=== PATIENT | female | born 1980 | race American Indian/Alaskan Native ===

== ENCOUNTER 2016-07-29 06:49 | Emergency (ER) | payer MEDICAID ==
[~2016-07-29] VITALS: Ht 170.2 cm; Wt 77.2 kg
[~2016-07-29 06:49] MED LIST: ACET325T21 PO; CEFU500T50 PO; FERR325T20 PO; FURO20TA3 PO; LEVO750T26 PO; MEDR5TAB2 PO; NAPR500T PO; OMEP-110 PO; OXYC5TAB3 PO; PENT400T2 PO; POLY17PO5 PO; POTA20TA14 PO; SPIR50TA PO
[2016-07-29] MEDS ORDERED: ONDANSETRON 2MG/ML, 2ML ONE (07:59)
[2016-07-29] MEDS ORDERED: MORPHINE SULFATE 4 MG/ML, 1ML ONE (07:59)
[2016-07-29] MEDS ORDERED: MORPHINE SULFATE 4 MG/ML, 1ML IVPush PRN (08:00)
[2016-07-29] MEDS ORDERED: ONDANSETRON 2MG/ML, 2ML IVPush ONE (08:00)
[2016-07-29] MEDS ORDERED: SODIUM CHLORIDE FLUSH 10ML SYR IVF ONE (08:00)
[2016-07-29] MEDS ORDERED: SODIUM CHLORIDE 0.9% 1,000ML IVBOLUS ONE (08:00)
[2016-07-29 08:12] LABS: HEMOGLOBIN 10.7 g/dL (11.7-16.4)
[2016-07-29 08:24] LABS: BLOOD UREA NITROGEN 1 mg/dL (7-18)
[2016-07-29 08:28] LABS: ASPARTATE AMINO TRANSFERASE 69 U/L (15-37)
[2016-07-29 09:27] LABS: HCG UR OBC PASS
[2016-07-29 10:42] VITALS: BP 117/61
== END 2016-07-29 10:51 | disposition home or self-care (01) ==
LOC: ED 07:22
DX: K64.8 Other hemorrhoids (principal); K70.10 Alcoholic hepatitis without ascites; J45.909 Unspecified asthma, uncomplicated; Z90.49 Acquired absence of other specified parts of digestive tract; Z98.51 Tubal ligation status
CPT/HCPCS: 36415; 46600; 80053; 80307; 81001; 81025; 83690; 85025; 85610; 85730; 96361; 96374; 96375; 99284; J2405; J7030

== ENCOUNTER 2016-08-25 07:16 | Emergency (ER) | payer MEDICAID ==
[~2016-08-25] VITALS: Ht 170.2 cm; Wt 78.3 kg
[2016-08-25] MEDS ORDERED: MORPHINE SULFATE 4 MG/ML, 1ML IVPush PRN (08:00)
[2016-08-25] MEDS ORDERED: ONDANSETRON 2MG/ML, 2ML IVPush ONE (08:00)
[2016-08-25] MEDS ORDERED: SODIUM CHLORIDE FLUSH 10ML SYR IVF ONE (08:00)
[2016-08-25] MEDS ORDERED: SODIUM CHLORIDE 0.9% 1,000ML IVBOLUS ONE (08:00)
[2016-08-25] MEDS ORDERED: MORPHINE SULFATE 4 MG/ML, 1ML ONE (08:04)
[2016-08-25] MEDS ORDERED: ONDANSETRON 2MG/ML, 2ML ONE (08:04)
[2016-08-25 08:14] LABS: ASPARTATE AMINO TRANSFERASE 124 U/L (15-37); BLOOD UREA NITROGEN 1 mg/dL (7-18)
[2016-08-25 09:30] VITALS: BP 91/56
[2016-08-25] MEDS ORDERED: OMNIPAQUE 350 MG/ML, 100ML BOTTLE ONE (09:53)
[2016-08-25] MEDS ORDERED: CEFTRIAXONE PMX 1GM/50ML 50 ML ONE (11:29)
[2016-08-25] MEDS ORDERED: CEFTRIAXONE PMX 1GM/50ML 50 ML IVPB ONE (11:30)
== END 2016-08-25 12:00 | disposition home or self-care (01) ==
LOC: ED 08:45
DX: N30.00 Acute cystitis without hematuria (principal); K70.30 Alcoholic cirrhosis of liver without ascites; D53.9 Nutritional anemia, unspecified; R10.84 Generalized abdominal pain
CPT/HCPCS: 36415; 74177; 80053; 81001; 83690; 84703; 85025; 85610; 87077; 87086; 96361; 96374; 96375; 99285; J0696; J2405; J7030; Q9967; 87186

== ENCOUNTER 2016-09-03 01:44 | Emergency (ER) | payer MEDICAID ==
[~2016-09-03] VITALS: Ht 170.2 cm; Wt 80.0 kg
[2016-09-03] MEDS ORDERED: ESCI10TA10 PO (01:53)
[2016-09-03] MEDS ORDERED: QUET200T4 PO (01:53)
[2016-09-03 02:21] LABS: ASPARTATE AMINO TRANSFERASE 154 U/L (15-37); BLOOD UREA NITROGEN 2 mg/dL (7-18)
[2016-09-03 02:26] LABS: DAU SCREEN DISCLAIMER
[2016-09-03] MEDS ORDERED: SODIUM CHLORIDE 0.9%, 500ML IVBOLUS ONE (02:30)
[2016-09-03 03:30] VITALS: BP 134/75
== END 2016-09-03 03:32 | disposition home or self-care (01) ==
LOC: ED 03:26
DX: K70.30 Alcoholic cirrhosis of liver without ascites (principal); F10.20 Alcohol dependence, uncomplicated; R79.89 Other specified abnormal findings of blood chemistry; D64.9 Anemia, unspecified; R10.30 Lower abdominal pain, unspecified; G89.29 Other chronic pain; K75.9 Inflammatory liver disease, unspecified; J45.909 Unspecified asthma, uncomplicated; F19.10 Other psychoactive substance abuse, uncomplicated; Z90.49 Acquired absence of other specified parts of digestive tract
CPT/HCPCS: 36415; 51701; 76770; 80053; 80307; 81001; 84703; 85025; 99285; J7040; P9612

== ENCOUNTER 2016-09-03 12:11 | Inpatient (IN) | payer MEDICAID ==
[~2016-09-03] VITALS: Ht 170.2 cm; Wt 89.0 kg
[~2016-09-03 12:11] MED LIST changes: +ESCI10TA10 PO; +QUET200T4 PO
[2016-09-03] MEDS ORDERED: SODIUM CHLORIDE 0.9% 1,000 ML IV ONE ×2 (14:22→16:27)
[2016-09-03] MEDS ORDERED: ONDANSETRON 2MG/ML, 2ML IVPush ONE (14:30)
[2016-09-03] MEDS ORDERED: SODIUM CHLORIDE FLUSH 10ML SYR IVF ONE (14:30)
[2016-09-03] MEDS ORDERED: SODIUM CHLORIDE 0.9% 1,000ML IVBOLUS ONE ×2 (14:30→16:00)
[2016-09-03 15:35] LABS: BLOOD UREA NITROGEN 3 mg/dL (7-18)
[2016-09-03 15:38] LABS: ASPARTATE AMINO TRANSFERASE 191 U/L (15-37)
[2016-09-03] MEDS ORDERED: LORazepam 2 MG/ML, 1ML IVPush PRN (16:00)
[2016-09-03] MEDS ORDERED: LORazepam 2 MG/ML, 1ML ONE (16:01)
[2016-09-03] MEDS ORDERED: ONDANSETRON 2MG/ML, 2ML ONE (16:01)
[2016-09-03] MEDS ORDERED: ONDANSETRON 2MG/ML, 2ML IVPush PRN (16:30)
[2016-09-03] MEDS ORDERED: SODIUM CHLORIDE FLUSH 10ML SYR IVF PRN (16:30)
[2016-09-03] MEDS ORDERED: LORazepam 2 MG/ML, 1ML IV PRN ×3 (17:30)
[2016-09-03] MEDS ORDERED: LORazepam 0.5MG TABLET PO PRN (17:30)
[2016-09-03] MEDS ORDERED: DIAZEPAM 5 MG/ML, 2ML IV ONE (17:30)
[2016-09-03] MEDS: LACTULOSE 20 GM/30 ML UDC PO SCH ×2 (17:30→21:00)
[2016-09-03] MEDS ORDERED: LORazepam 1MG TABLET PO PRN ×2 (17:30)
[2016-09-03 18:54] VITALS: BP 109/71
[2016-09-03] MEDS ORDERED: MAGNESIUM SULFATE PMX 4GM/100M 100 ML IV ONE (19:00)
[2016-09-03] MEDS: MORPHINE SULFATE 4 MG/ML, 1ML IVPush PRN (19:51)
[2016-09-03 20:12] LABS: DAU SCREEN DISCLAIMER
[2016-09-03 20:20] LABS: HCG UR OBC PASS
[2016-09-03] MEDS: MVI ADULT 10 ML, FOLIC ACID 1 MG in D5%-0.9% NACL 1,000 ML IV SCH (20:39)
[2016-09-03] MEDS: FAMOTIDINE 20 MG/2 ML IVPush SCH (22:05)
[2016-09-03] MEDS: ONDANSETRON 2MG/ML, 2ML IV PRN (22:06)
[2016-09-04] VITALS (9 sets, daily range): BP systolic 117–130; BP diastolic 62–78
[2016-09-04] MEDS: MORPHINE SULFATE 4 MG/ML, 1ML IVPush PRN ×2 (01:55→13:50)
[2016-09-04] MEDS: MVI ADULT 10 ML, FOLIC ACID 1 MG in D5%-0.9% NACL 1,000 ML IV SCH ×2 (05:13→17:00)
[2016-09-04 07:50] LABS: ASPARTATE AMINO TRANSFERASE 112 U/L (15-37); BLOOD UREA NITROGEN 2 mg/dL (7-18)
[2016-09-04] MEDS: LACTULOSE 20 GM/30 ML UDC PO SCH ×3 (09:35→20:15)
[2016-09-04] MEDS: FAMOTIDINE 20 MG/2 ML IVPush SCH ×2 (09:35→20:16)
[2016-09-04 10:58] LABS: ANISOCYTOSIS 1+; OVALOCYTES 1+; POLYCHROMASIA 1+
[2016-09-04] MEDS: ONDANSETRON 2MG/ML, 2ML IV PRN (13:51)
[2016-09-04] MEDS: POTASSIUM CHLORIDE 20 MEQ TAB.ER.PRT PO SCH (16:34)
[2016-09-05] VITALS (7 sets, daily range): BP systolic 122–142; BP diastolic 73–83
[2016-09-05] MEDS: MVI ADULT 10 ML, FOLIC ACID 1 MG in D5%-0.9% NACL 1,000 ML IV SCH (01:08)
[2016-09-05] MEDS: MORPHINE SULFATE 4 MG/ML, 1ML IVPush PRN ×4 (01:08→22:16)
[2016-09-05] MEDS: ONDANSETRON 2MG/ML, 2ML IV PRN ×3 (01:09→17:21)
[2016-09-05 06:10] LABS: ASPARTATE AMINO TRANSFERASE 84 U/L (15-37); BLOOD UREA NITROGEN < 1 mg/dL (7-18)
[2016-09-05 07:17] LABS: DIFF TOTAL CELLS COUNTED 100 CELL DIFF
[2016-09-05] MEDS ORDERED: POTASSIUM CHLORIDE 40 MEQ in D5%-0.9% NACL 1,000 ML IV SCH (07:30)
[2016-09-05 07:31] LABS: ANISOCYTOSIS 2+; OVALOCYTES 1+; POIKILOCYTOSIS 1+; SCHISTOCYTES 1+
[2016-09-05 07:32] LABS: VERIFY COUNTS? YES
[2016-09-05] MEDS: THIAMINE 100MG TABLET PO SCH (09:52)
[2016-09-05] MEDS: FOLIC ACID 1 MG TABLET PO SCH (09:52)
[2016-09-05] MEDS: LACTULOSE 20 GM/30 ML UDC PO SCH ×3 (09:52→22:02)
[2016-09-05] MEDS: MULTIVITAMIN 1 TABLET PO SCH (09:52)
[2016-09-05] MEDS: FAMOTIDINE 20 MG/2 ML IVPush SCH ×2 (09:52→22:03)
[2016-09-05] MEDS: POTASSIUM CHLORIDE 20 MEQ TAB.ER.PRT PO SCH (11:36)
[2016-09-05] MEDS: CEFTRIAXONE PMX 1GM/50ML 50 ML IV SCH (15:15)
[2016-09-05] MEDS ORDERED: POTASSIUM PHOSPHATE 22 MEQ in SODIUM CHLORIDE 0.9% 500 ML IV ONE (16:00)
[2016-09-05] MEDS: POTASSIUM CHLORIDE 40 MEQ in D5%-0.9% NACL 1,000 ML IV SCH (19:18)
[2016-09-05 22:46] LABS: OCCBLD OBC PASS
[2016-09-06] MEDS: ONDANSETRON 2MG/ML, 2ML IV PRN ×4 (00:20→20:28)
[2016-09-06 02:03] VITALS: BP 127/80
[2016-09-06] MEDS: MORPHINE SULFATE 4 MG/ML, 1ML IVPush PRN ×3 (05:07→20:28)
[2016-09-06 05:25] LABS: BLOOD UREA NITROGEN < 1 mg/dL (7-18)
[2016-09-06 05:49] LABS: DIFF TOTAL CELLS COUNTED 100 CELL DIFF
[2016-09-06 05:51] LABS: ANISOCYTOSIS 2+; POLYCHROMASIA 1+; VERIFY COUNTS? YES
[2016-09-06] MEDS: POTASSIUM CHLORIDE 40 MEQ in D5%-0.9% NACL 1,000 ML IV SCH (06:22)
[2016-09-06 07:53] VITALS: BP 134/80
[2016-09-06] MEDS: THIAMINE 100MG TABLET PO SCH (08:24)
[2016-09-06] MEDS: FAMOTIDINE 20 MG/2 ML IVPush SCH ×2 (08:24→20:28)
[2016-09-06] MEDS: MULTIVITAMIN 1 TABLET PO SCH (08:25)
[2016-09-06] MEDS: FOLIC ACID 1 MG TABLET PO SCH (08:25)
[2016-09-06] MEDS: LACTULOSE 20 GM/30 ML UDC PO SCH ×4 (08:25→20:28)
[2016-09-06 13:57] VITALS: BP 116/71
[2016-09-06] MEDS: CEFTRIAXONE PMX 1GM/50ML 50 ML IV SCH (15:03)
[2016-09-06] MEDS ORDERED: MAGNESIUM SULFATE PMX 4GM/100M 100 ML IV ONE (16:30)
[2016-09-06] MEDS: POTASSIUM CHLORIDE 20 MEQ TAB.ER.PRT PO SCH (17:00)
[2016-09-06 18:53] VITALS: BP 116/72
[2016-09-07 00:56] VITALS: BP 100/59
[2016-09-07 05:52] LABS: BLOOD UREA NITROGEN 1 mg/dL (7-18)
[2016-09-07 05:58] LABS: ASPARTATE AMINO TRANSFERASE 58 U/L (15-37)
[2016-09-07] MEDS: ONDANSETRON 2MG/ML, 2ML IV PRN (06:32)
[2016-09-07 06:53] LABS: DIFF TOTAL CELLS COUNTED 100 CELL DIFF
[2016-09-07 06:56] LABS: ANISOCYTOSIS 2+; POLYCHROMASIA 1+; VERIFY COUNTS? YES
[2016-09-07 07:31] VITALS: BP 114/73
[2016-09-07] MEDS: MULTIVITAMIN 1 TABLET PO SCH (08:52)
[2016-09-07] MEDS: FAMOTIDINE 20 MG/2 ML IVPush SCH (08:52)
[2016-09-07] MEDS: FOLIC ACID 1 MG TABLET PO SCH (08:52)
[2016-09-07] MEDS: THIAMINE 100MG TABLET PO SCH (08:52)
[2016-09-07] MEDS: POTASSIUM CHLORIDE 20 MEQ TAB.ER.PRT PO SCH (08:52)
[2016-09-07] MEDS: LACTULOSE 20 GM/30 ML UDC PO SCH (08:53)
[2016-09-07] MEDS: MORPHINE SULFATE 4 MG/ML, 1ML IVPush PRN (08:59)
[2016-09-07] MEDS ORDERED: THIA100T6 PO (12:40)
[2016-09-07] MEDS ORDERED: LACT20SO13 PO (12:40)
[2016-09-07] MEDS ORDERED: MULT1TAB60 PO (12:40)
[2016-09-07] MEDS ORDERED: NITR100C PO (12:40)
[2016-09-07] MEDS ORDERED: FOLI-17 PO (12:40)
[2016-09-07] MEDS ORDERED: TRAM50TA2 PO (12:40)
[2016-09-07] MEDS ORDERED: POTA20TA6 PO (12:40)
[2016-09-07] MEDS ORDERED: FAMO-79 PO (12:40)
[2016-09-07] MEDS ORDERED: CEFTRIAXONE 1,000 MG in SODIUM CHLORIDE 0.9% 50 ML IV SCH (15:00)
== END 2016-09-07 15:00 | disposition home or self-care (01) | DRG 432 ==
LOC: ED 14:16 → EDIP 16:27 → 3NE 18:04 → 4EST 09-04 12:54 → 4WST 09-06 17:47 → DCLOUNGE 09-07 14:26
PROVIDERS: ADMIT Family Medicine; ATTEND Family Medicine
PROC: 30233N1 Transfusion of Nonautologous Red Blood Cells into Peripheral Vein, Percutaneous Approach (ICD-10-PCS; principal; 2016-09-04)
DX: K70.10 Alcoholic hepatitis without ascites (principal); E43 Unspecified severe protein-calorie malnutrition; D68.9 Coagulation defect, unspecified; E87.2 Acidosis; F10.239 Alcohol dependence with withdrawal, unspecified; N39.0 Urinary tract infection, site not specified; J98.11 Atelectasis; D53.9 Nutritional anemia, unspecified; D69.59 Other secondary thrombocytopenia; G89.4 Chronic pain syndrome; F43.10 Post-traumatic stress disorder, unspecified; F32.9 Major depressive disorder, single episode, unspecified; F41.9 Anxiety disorder, unspecified; K70.30 Alcoholic cirrhosis of liver without ascites; E83.42 Hypomagnesemia; E87.6 Hypokalemia; S00.83XA Contusion of other part of head, initial encounter; D63.8 Anemia in other chronic diseases classified elsewhere; E83.51 Hypocalcemia; R29.6 Repeated falls; Z87.891 Personal history of nicotine dependence; Z91.410 Personal history of adult physical and sexual abuse; Z82.49 Family history of ischemic heart disease and other diseases of the circulatory system; Z91.19 Patient's noncompliance with other medical treatment and regimen; F19.94 Other psychoactive substance use, unspecified with psychoactive substance-induced mood disorder; E83.39 Other disorders of phosphorus metabolism; F15.90 Other stimulant use, unspecified, uncomplicated; M54.9 Dorsalgia, unspecified; R74.0 Nonspecific elevation of levels of transaminase and lactic acid dehydrogenase [LDH]; R31.9 Hematuria, unspecified; B95.2 Enterococcus as the cause of diseases classified elsewhere; Z98.51 Tubal ligation status; R00.0 Tachycardia, unspecified; W19.XXXA Unspecified fall, initial encounter; Y93.89 Activity, other specified; Y92.89 Other specified places as the place of occurrence of the external cause; Y99.8 Other external cause status; K72.90 Hepatic failure, unspecified without coma; F10.229 Alcohol dependence with intoxication, unspecified; Z68.30 Body mass index [BMI] 30.0-30.9, adult
CPT/HCPCS: 36415; 70450; 70486; 71010; 74000; 76700; 80048; 80053; 80307; 81001; 81025; 82140; 82272; 83605; 83690; 83735; 83880; 84100; 85014; 85018; 85025; 85610; 85730; 86850; 86900; 86923; 87077; 87086; 87186; 93005; 96361; 96374; 96375; J0696; J2405; J3480; J7042; J2060; J3475; J7030; J7040; P9016; S0028

== ENCOUNTER 2016-09-20 09:45 | Inpatient (IN) | payer MEDICAID ==
[~2016-09-20] VITALS: Ht 170.2 cm; Wt 88.2 kg
[2016-09-20] MEDS: RIFAXIMIN 550 MG TABLET PO SCH ×3 (09:00→23:00)
[2016-09-20] MEDS: LACTULOSE 20 GM/30 ML UDC PO SCH ×4 (09:00→23:00)
[~2016-09-20 09:45] MED LIST changes: +FAMO-79 PO; +FOLI-17 PO; +LACT20SO13 PO; +MULT1TAB60 PO; +NITR100C PO; +POTA20TA6 PO; +THIA100T6 PO; +TRAM50TA2 PO
[2016-09-20] MEDS ORDERED: LORazepam 2 MG/ML, 1ML ONE (10:22)
[2016-09-20] MEDS ORDERED: PANTOPRAZOLE 40 MG IV ONE (12:20)
[2016-09-20] MEDS ORDERED: FAMOTIDINE 20 MG/2 ML ONE (12:20)
[2016-09-20] MEDS ORDERED: SUCCINYLCHOLINE 20 MG/ML, 10ML ONE (12:50)
[2016-09-20] MEDS ORDERED: PROPOFOL 10 MG/ML, 20ML ONE (12:50)
[2016-09-20] MEDS ORDERED: ROCURONIUM 10 MG/ML ONE (12:50)
[2016-09-20] MEDS ORDERED: CEFTRIAXONE PMX 1GM/50ML 50 ML ONE (15:42)
[2016-09-20] MEDS ORDERED: OCTREOTIDE 500 MCG in SODIUM CHLORIDE 0.9% 249 ML IV SCH (20:00)
[2016-09-20] MEDS: CEFTRIAXONE PMX 1GM/50ML 50 ML IVPB SCH ×2 (20:00→23:00)
[2016-09-20] MEDS: POTASSIUM CHLORIDE 20 MEQ, MAGNESIUM SULFATE 1 GM, FOLIC ACID 1 MG, THIAMINE 100 MG, MV... IV SCH (23:00)
[2016-09-20] MEDS: PANTOPRAZOLE 40 MG IV IVPush SCH (23:00)
[2016-09-21] MEDS ORDERED: ONDANSETRON 2MG/ML, 2ML ONE ×2 (00:28→10:14)
[2016-09-21] MEDS: ONDANSETRON 2MG/ML, 2ML IV PRN ×2 (00:30→10:15)
[2016-09-21] MEDS: METRONIDAZOLE PMX 500MG/100ML 100 ML IV SCH ×4 (02:00→20:01)
[2016-09-21 07:52] VITALS: BP 112/68
[2016-09-21] MEDS: RIFAXIMIN 550 MG TABLET PO SCH ×2 (09:00→22:41)
[2016-09-21] MEDS: PANTOPRAZOLE 40 MG IV IVPush SCH (09:00)
[2016-09-21] MEDS: LACTULOSE 20 GM/30 ML UDC PO SCH ×3 (09:00→21:00)
[2016-09-21] MEDS ORDERED: OXYcodone IR 5MG TABLET ONE (11:19)
[2016-09-21] MEDS: OXYcodone IR 5MG TABLET PO PRN (11:20)
[2016-09-21] MEDS ORDERED: POTASSIUM CHLORIDE 20 MEQ TAB.ER.PRT PO ONE (11:30)
[2016-09-21] MEDS ORDERED: MAGNESIUM SULFATE PMX 2GM/50ML 50 ML IV ONE (11:30)
[2016-09-21] MEDS ORDERED: MIDAZOLAM 1 MG/ML, 2ML ONE (12:32)
[2016-09-21] MEDS ORDERED: FENTANYL PF 250 MCG/5ML ONE (12:32)
[2016-09-21] MEDS ORDERED: OXYcodone 5 MG/5 ML ORAL.SOL UDC ONE (13:57)
[2016-09-21] MEDS ORDERED: LABETALOL 5MG/ML, 20ML IV PRN (17:00)
[2016-09-21] MEDS ORDERED: OCTREOTIDE 500 MCG in SODIUM CHLORIDE 0.9% 249 ML IV SCH (17:00)
[2016-09-21] MEDS: SODIUM CHLORIDE 0.9% 1,000 ML IV SCH (17:00)
[2016-09-21] MEDS ORDERED: [UNRECOGNIZED DRUG - REMARK] MC SCH (17:00)
[2016-09-21] MEDS ORDERED: OXYcodone IR 5MG TABLET PO PRN (17:30)
[2016-09-21 20:00] VITALS: BP 107/63
[2016-09-21 20:06] LABS: DIFF TOTAL CELLS COUNTED 100 CELL DIFF
[2016-09-21 20:12] LABS: ANISOCYTOSIS 2+; HYPOCHROMIA 1+; OVALOCYTES 1+
[2016-09-21 20:19] LABS: VERIFY COUNTS? YES
[2016-09-21] MEDS ORDERED: LORazepam 1MG TABLET PO PRN ×3 (22:30)
[2016-09-21] MEDS: CEFTRIAXONE PMX 1GM/50ML 50 ML IVPB SCH (22:41)
[2016-09-21] MEDS ORDERED: LORazepam 1MG TABLET ONE (22:53)
[2016-09-21] MEDS: LORazepam 0.5MG TABLET PO PRN (22:58)
[2016-09-22] VITALS (10 sets, daily range): BP systolic 99–116; BP diastolic 57–69
[2016-09-22] MEDS: OXYcodone IR 5MG TABLET PO PRN ×2 (02:52→21:23)
[2016-09-22] MEDS: SODIUM CHLORIDE 0.9% 1,000 ML IV SCH (03:38)
[2016-09-22 06:50] LABS: ASPARTATE AMINO TRANSFERASE 92 U/L (15-37); BLOOD UREA NITROGEN 5 mg/dL (7-18)
[2016-09-22] MEDS ORDERED: SODIUM PHOSPHATE 4 MEQ/ML IV SCH (08:00)
[2016-09-22] MEDS ORDERED: POTASSIUM CHLORIDE 20 MEQ TAB.ER.PRT PO ONE (08:00)
[2016-09-22] MEDS ORDERED: SODIUM PHOSPHATE 30 MMOL in SODIUM CHLORIDE 0.9% 500 ML IV ONE (08:30)
[2016-09-22] MEDS ORDERED: MAGNESIUM SULFATE PMX 2GM/50ML 50 ML IV ONE (08:30)
[2016-09-22] MEDS: OMEPRAZOLE 20 MG CAPSULE.DR PO SCH (08:49)
[2016-09-22] MEDS: LORazepam 1MG TABLET PO PRN (08:49)
[2016-09-22] MEDS: CEFTRIAXONE PMX 2GM/50ML 50 ML IVPB SCH (09:31)
[2016-09-22] MEDS: LORazepam 0.5MG TABLET PO PRN (14:10)
[2016-09-22] MEDS: METRONIDAZOLE PMX 500MG/100ML 100 ML IV SCH ×2 (14:10→21:08)
[2016-09-22] MEDS: LACTULOSE 20 GM/30 ML UDC PO SCH ×2 (16:00→21:09)
[2016-09-22 16:20] LABS: DAU SCREEN DISCLAIMER
[2016-09-22 19:42] LABS: ASPARTATE AMINO TRANSFERASE 92 U/L (15-37); BLOOD UREA NITROGEN 14 mg/dL (7-18)
[2016-09-22] MEDS: POTASSIUM CHLORIDE 20 MEQ, MAGNESIUM SULFATE 1 GM, FOLIC ACID 1 MG, THIAMINE 100 MG, MV... IV SCH (21:08)
[2016-09-22] MEDS: RIFAXIMIN 550 MG TABLET PO SCH (21:08)
[2016-09-23 02:00] VITALS: BP 123/76
[2016-09-23] MEDS: LORazepam 0.5MG TABLET PO PRN ×2 (04:01→08:14)
[2016-09-23] MEDS: METRONIDAZOLE PMX 500MG/100ML 100 ML IV SCH ×3 (05:07→20:50)
[2016-09-23 06:01] LABS: BLOOD UREA NITROGEN 3 mg/dL (7-18)
[2016-09-23 07:12] VITALS: BP 105/60
[2016-09-23] MEDS: OXYcodone IR 5MG TABLET PO PRN ×2 (08:14→19:55)
[2016-09-23] MEDS: OMEPRAZOLE 20 MG CAPSULE.DR PO SCH (08:14)
[2016-09-23] MEDS: RIFAXIMIN 550 MG TABLET PO SCH ×2 (08:14→20:50)
[2016-09-23] MEDS: LACTULOSE 20 GM/30 ML UDC PO SCH ×3 (09:00→20:49)
[2016-09-23 09:05] LABS: ANISOCYTOSIS 2+
[2016-09-23 09:06] LABS: OVALOCYTES 1+; POLYCHROMASIA 1+
[2016-09-23] MEDS: CEFTRIAXONE PMX 2GM/50ML 50 ML IVPB SCH (11:27)
[2016-09-23 14:31] VITALS: BP 112/62
[2016-09-23 20:00] VITALS: BP 128/79
[2016-09-23] MEDS: ONDANSETRON 2MG/ML, 2ML IV PRN (20:50)
[2016-09-24 02:00] VITALS: BP 104/62
[2016-09-24 04:53] LABS: BLOOD UREA NITROGEN 3 mg/dL (7-18)
[2016-09-24] MEDS: METRONIDAZOLE PMX 500MG/100ML 100 ML IV SCH ×3 (05:17→20:11)
[2016-09-24 05:47] LABS: DIFF TOTAL CELLS COUNTED 100 CELL DIFF
[2016-09-24 05:50] LABS: ANISOCYTOSIS 2+; VERIFY COUNTS? YES
[2016-09-24 05:51] LABS: ECHINOCYTES 1+; POLYCHROMASIA 1+
[2016-09-24 07:37] VITALS: BP 106/55
[2016-09-24] MEDS: RIFAXIMIN 550 MG TABLET PO SCH ×2 (08:59→20:11)
[2016-09-24] MEDS: FOLIC ACID 1 MG TABLET PO SCH (08:59)
[2016-09-24] MEDS: THIAMINE 100MG TABLET PO SCH (08:59)
[2016-09-24] MEDS: OXYcodone IR 5MG TABLET PO PRN ×2 (08:59→18:01)
[2016-09-24] MEDS: OMEPRAZOLE 20 MG CAPSULE.DR PO SCH (08:59)
[2016-09-24] MEDS: CEFTRIAXONE PMX 2GM/50ML 50 ML IVPB SCH (10:54)
[2016-09-24] MEDS: LACTULOSE 20 GM/30 ML UDC PO SCH ×3 (10:54→20:12)
[2016-09-24] MEDS: prednisOLONE 15 MG/5 ML ORAL SOLN PO SCH (11:31)
[2016-09-24 13:39] VITALS: BP 110/76
[2016-09-24 13:57] VITALS: BP 117/77
[2016-09-24 15:11] LABS: BLOOD UREA NITROGEN 12 mg/dL (7-18)
[2016-09-24 15:12] LABS: ASPARTATE AMINO TRANSFERASE 70 U/L (15-37)
[2016-09-24 19:18] VITALS: BP 128/85
[2016-09-24] MEDS: LORazepam 1MG TABLET PO PRN (20:28)
[2016-09-25 00:31] VITALS: BP 123/78
[2016-09-25] MEDS: METRONIDAZOLE PMX 500MG/100ML 100 ML IV SCH ×3 (05:16→22:41)
[2016-09-25 05:31] LABS: BLOOD UREA NITROGEN 7 mg/dL (7-18)
[2016-09-25 05:34] LABS: ASPARTATE AMINO TRANSFERASE 42 U/L (15-37)
[2016-09-25 06:12] LABS: DIFF TOTAL CELLS COUNTED 100 CELL DIFF
[2016-09-25 06:14] LABS: VERIFY COUNTS? YES
[2016-09-25 06:15] LABS: ECHINOCYTES 1+
[2016-09-25 06:16] LABS: ANISOCYTOSIS 2+; OVALOCYTES 1+; POIKILOCYTOSIS 1+
[2016-09-25 07:03] VITALS: BP 106/60
[2016-09-25 07:24] LABS: ANISOCYTOSIS 2+; SCHISTOCYTES 1+
[2016-09-25] MEDS: prednisOLONE 15 MG/5 ML ORAL SOLN PO SCH (08:19)
[2016-09-25] MEDS: RIFAXIMIN 550 MG TABLET PO SCH ×2 (08:19→20:54)
[2016-09-25] MEDS: OXYcodone IR 5MG TABLET PO PRN ×2 (08:19→18:04)
[2016-09-25] MEDS: FOLIC ACID 1 MG TABLET PO SCH (08:19)
[2016-09-25] MEDS: OMEPRAZOLE 20 MG CAPSULE.DR PO SCH (08:19)
[2016-09-25] MEDS: THIAMINE 100MG TABLET PO SCH (08:19)
[2016-09-25] MEDS: LACTULOSE 20 GM/30 ML UDC PO SCH ×3 (09:00→21:00)
[2016-09-25] MEDS ORDERED: SODIUM PHOSPHATE 30 MMOL in SODIUM CHLORIDE 0.9% 500 ML IV ONE (11:00)
[2016-09-25] MEDS ORDERED: POTASSIUM CHLORIDE 20 MEQ TAB.ER.PRT PO ONE (11:00)
[2016-09-25] MEDS ORDERED: SODIUM PHOSPHATE 4 MEQ/ML IV SCH (11:00)
[2016-09-25] MEDS: LORazepam 0.5MG TABLET PO PRN ×2 (12:24→20:59)
[2016-09-25 12:47] VITALS: BP 115/74
[2016-09-25 19:42] VITALS: BP 109/67
[2016-09-26 02:04] VITALS: BP 108/61
[2016-09-26] MEDS: OXYcodone IR 5MG TABLET PO PRN ×2 (04:53→15:07)
[2016-09-26 05:46] LABS: ASPARTATE AMINO TRANSFERASE 57 U/L (15-37); BLOOD UREA NITROGEN 7 mg/dL (7-18)
[2016-09-26] MEDS: METRONIDAZOLE PMX 500MG/100ML 100 ML IV SCH ×2 (06:10→15:07)
[2016-09-26 06:33] LABS: DIFF TOTAL CELLS COUNTED 100 CELL DIFF
[2016-09-26 06:36] LABS: ANISOCYTOSIS 2+; POIKILOCYTOSIS 1+; VERIFY COUNTS? YES
[2016-09-26 06:38] LABS: ACANTHOCYTES 1+; ECHINOCYTES 1+; SCHISTOCYTES 1+; TARGET CELLS 1+
[2016-09-26 07:21] VITALS: BP 104/62
[2016-09-26] MEDS ORDERED: POTASSIUM CHLORIDE 20 MEQ PACKET PO SCH (08:00)
[2016-09-26] MEDS: prednisOLONE 15 MG/5 ML ORAL SOLN PO SCH (08:24)
[2016-09-26] MEDS: RIFAXIMIN 550 MG TABLET PO SCH (08:25)
[2016-09-26] MEDS: OMEPRAZOLE 20 MG CAPSULE.DR PO SCH (08:25)
[2016-09-26] MEDS: FOLIC ACID 1 MG TABLET PO SCH (08:25)
[2016-09-26] MEDS: THIAMINE 100MG TABLET PO SCH (08:25)
[2016-09-26] MEDS: LACTULOSE 20 GM/30 ML UDC PO SCH ×2 (09:00→15:08)
[2016-09-26 13:32] VITALS: BP 105/69
[2016-09-26] MEDS ORDERED: LACT20SO13 PO (15:47)
[2016-09-26] MEDS ORDERED: OMEP-110 PO (15:47)
[2016-09-26] MEDS ORDERED: RIFA550T PO (15:47)
[2016-09-26] MEDS ORDERED: FURO-93 PO (15:48)
[2016-09-26] MEDS ORDERED: SPIR25TA PO (15:48)
[2016-09-26] MEDS ORDERED: METR500T PO (15:49)
[2016-09-26] MEDS ORDERED: ERGOCALCIFEROL 50,000 UNIT CAPSULE PO SCH (16:00)
== END 2016-09-26 18:40 | disposition home or self-care (01) | DRG 377 ==
LOC: ED 09:45 → 4EST 13:13
PROVIDERS: ADMIT Hospitalist; ATTEND Hospitalist
PROC: 30233N1 Transfusion of Nonautologous Red Blood Cells into Peripheral Vein, Percutaneous Approach (ICD-10-PCS; 2016-09-21)
PROC: 0DJ08ZZ Inspection of Upper Intestinal Tract, Via Natural or Artificial Opening Endoscopic (ICD-10-PCS; principal; 2016-09-21 12:50)
DX: K92.0 Hematemesis (principal); K72.00 Acute and subacute hepatic failure without coma; E43 Unspecified severe protein-calorie malnutrition; K65.9 Peritonitis, unspecified; F10.239 Alcohol dependence with withdrawal, unspecified; A04.7 Enterocolitis due to Clostridium difficile; D62 Acute posthemorrhagic anemia; F17.213 Nicotine dependence, cigarettes, with withdrawal; K74.60 Unspecified cirrhosis of liver; K70.10 Alcoholic hepatitis without ascites; E87.6 Hypokalemia; D75.89 Other specified diseases of blood and blood-forming organs; K31.89 Other diseases of stomach and duodenum; D69.6 Thrombocytopenia, unspecified; Z90.49 Acquired absence of other specified parts of digestive tract; Z98.891 History of uterine scar from previous surgery; Z59.0 Homelessness; Z68.30 Body mass index [BMI] 30.0-30.9, adult
CPT/HCPCS: 36415; 71010; 76700; 80048; 80053; 80307; 81001; 82040; 82140; 82306; 82728; 82962; 83540; 83550; 83605; 83735; 84100; 85014; 85018; 85025; 85610; 85730; 86850; 86900; 86920; 86923; 87040; 87086; 87324; 93005; 93970; 99285; J0696; J2250; J2354; J2405; J2704; J3010; J3411; J3475; J3480; J7042; C9113; J0330; J7030; J7040; J7050; J7510; P9016

== ENCOUNTER 2016-10-04 16:54 | Inpatient (IN) | payer MEDICAID ==
[~2016-10-04] VITALS: Ht 170.2 cm; Wt 80.4 kg
[~2016-10-04 16:54] MED LIST changes: +FURO-93 PO; +METR500T PO; +RIFA550T PO; +SPIR25TA PO
[2016-10-04 17:28] LABS: DIFF TOTAL CELLS COUNTED 100 CELL DIFF
[2016-10-04 17:34] LABS: ASPARTATE AMINO TRANSFERASE 140 U/L (15-37); BLOOD UREA NITROGEN 3 mg/dL (7-18)
[2016-10-04 17:46] LABS: ANISOCYTOSIS 2+
[2016-10-04 17:47] LABS: ACANTHOCYTES 1+; ECHINOCYTES 1+; POLYCHROMASIA 1+; SCHISTOCYTES 1+
[2016-10-04 17:48] LABS: TARGET CELLS 1+; VERIFY COUNTS? YES
[2016-10-04 19:56] VITALS: BP 102/62
[2016-10-04 21:13] VITALS: BP 110/81
[2016-10-04] MEDS ORDERED: POTASSIUM CHLORIDE 20 MEQ, MAGNESIUM SULFATE 2 GM, THIAMINE 100 MG, MVI ADULT 10 ML, FO... IV SCH (21:15)
[2016-10-04] MEDS ORDERED: NS + 20MEQ KCL 1,000 ML IV SCH (21:15)
[2016-10-04] MEDS ORDERED: cloniDINE 0.1MG PATCH TD SCH (21:30)
[2016-10-04] MEDS ORDERED: PHYTONADIONE 10 MG in SODIUM CHLORIDE 0.9% 50 ML IV ONE (21:30)
[2016-10-04] MEDS ORDERED: POLYETHYLENE GLYCOL 17 GM PACKET PO PRN (21:30)
[2016-10-04] MEDS ORDERED: TRAZODONE 50MG TABLET PO PRN (21:30)
[2016-10-04] MEDS ORDERED: BISACODYL 10 MG SUPP PR PRN (21:30)
[2016-10-04] MEDS ORDERED: DOCUSATE 100 MG CAPSULE PO PRN (21:30)
[2016-10-04] MEDS ORDERED: hydrALAzine 20 MG/ML, 1ML IVPush PRN (21:30)
[2016-10-04 21:32] VITALS: BP 112/71
[2016-10-04 21:46] VITALS: BP 116/64
[2016-10-04] MEDS ORDERED: POTASSIUM CHLORIDE 20 MEQ TAB.ER.PRT PO ONE (22:00)
[2016-10-04 22:44] VITALS: BP 123/71
[2016-10-04] MEDS: LORazepam 2 MG/ML, 1ML IVPush PRN (22:56)
[2016-10-04] MEDS ORDERED: OMNIPAQUE 350 MG/ML, 100ML BOTTLE ONE (23:25)
[2016-10-04] MEDS: PANTOPRAZOLE 40 MG IV IVPush SCH (23:41)
[2016-10-05 01:33] VITALS: BP 100/65
[2016-10-05 06:26] LABS: ASPARTATE AMINO TRANSFERASE 116 U/L (15-37); BLOOD UREA NITROGEN 2 mg/dL (7-18)
[2016-10-05 07:25] VITALS: BP 129/77
[2016-10-05] MEDS: metroNIDAZOLE 500 MG TABLET PO SCH ×3 (08:40→21:02)
[2016-10-05] MEDS: FUROSEMIDE 20 MG TABLET PO SCH (08:40)
[2016-10-05] MEDS: PANTOPRAZOLE 40 MG IV IVPush SCH ×2 (08:40→21:07)
[2016-10-05] MEDS: SPIRONOLACTONE 25 MG TABLET PO SCH (08:40)
[2016-10-05] MEDS: RIFAXIMIN 550 MG TABLET PO SCH ×2 (08:41→21:02)
[2016-10-05] MEDS ORDERED: GABAPENTIN 100 MG CAPSULE PO SCH (09:00)
[2016-10-05] MEDS ORDERED: MULTIVITAMIN 1 TABLET PO SCH (09:00)
[2016-10-05] MEDS ORDERED: VALPROIC ACID 250 MG CAPSULE PO SCH (09:00)
[2016-10-05] MEDS ORDERED: THIAMINE 100MG TABLET PO SCH (09:00)
[2016-10-05] MEDS ORDERED: FOLIC ACID 1 MG TABLET PO SCH (09:00)
[2016-10-05] MEDS: LACTULOSE 20 GM/30 ML UDC PO SCH ×3 (10:27→21:00)
[2016-10-05] MEDS: LORazepam 2 MG/ML, 1ML IVPush PRN (10:28)
[2016-10-05] MEDS ORDERED: CHLORDIAZEPOXIDE 25 MG CAPSULE PO PRN (11:30)
[2016-10-05] MEDS ORDERED: LORazepam 2 MG/ML, 1ML IV PRN ×4 (11:30)
[2016-10-05] MEDS ORDERED: POTASSIUM CHLORIDE 40 MEQ in SODIUM CHLORIDE 0.9% 500 ML IV ONE (11:30)
[2016-10-05] MEDS ORDERED: NICOTINE 21 MG/24 HR PATCH.TD24 TD ONE (12:00)
[2016-10-05] MEDS: OCTREOTIDE 500 MCG in SODIUM CHLORIDE 0.9% 249 ML IV SCH ×2 (12:41→22:04)
[2016-10-05 12:53] VITALS: BP 106/63
[2016-10-05] MEDS ORDERED: SODIUM BICARBONATE 4.2%, 5ML ONE (14:34)
[2016-10-05] MEDS ORDERED: LIDOCAINE 1%, 20ML ONE (14:34)
[2016-10-05] MEDS: ONDANSETRON 2MG/ML, 2ML IVPush PRN (16:54)
[2016-10-05] MEDS: LORazepam 2 MG/ML, 1ML IV PRN ×2 (16:54→21:04)
[2016-10-05 19:33] VITALS: BP 125/80
[2016-10-05] MEDS: THIAMINE 100 MG, MVI ADULT 10 ML, FOLIC ACID 1 MG in D5%-0.9% NACL 1,000 ML IV SCH (22:04)
[2016-10-06 01:46] VITALS: BP 125/78
[2016-10-06 05:10] LABS: ASPARTATE AMINO TRANSFERASE 97 U/L (15-37); BLOOD UREA NITROGEN 2 mg/dL (7-18)
[2016-10-06 06:09] LABS: DIFF TOTAL CELLS COUNTED 100 CELL DIFF
[2016-10-06 06:11] LABS: VERIFY COUNTS? YES
[2016-10-06 06:12] LABS: ANISOCYTOSIS 2+; MICROCYTOSIS 1+; POLYCHROMASIA 1+; SCHISTOCYTES 1+
[2016-10-06 06:13] LABS: ECHINOCYTES 1+; LARGE PLATELETS 1+
[2016-10-06 07:15] VITALS: BP 123/70
[2016-10-06] MEDS: ONDANSETRON 2MG/ML, 2ML IVPush PRN (07:55)
[2016-10-06] MEDS: PANTOPRAZOLE 40 MG IV IVPush SCH ×2 (07:55→21:15)
[2016-10-06] MEDS: RIFAXIMIN 550 MG TABLET PO SCH ×2 (09:00→21:11)
[2016-10-06] MEDS: LACTULOSE 20 GM/30 ML UDC PO SCH ×3 (09:00→21:00)
[2016-10-06] MEDS: SPIRONOLACTONE 25 MG TABLET PO SCH (09:00)
[2016-10-06] MEDS: FUROSEMIDE 20 MG TABLET PO SCH (09:00)
[2016-10-06] MEDS: metroNIDAZOLE 500 MG TABLET PO SCH ×3 (09:00→21:11)
[2016-10-06] MEDS ORDERED: OXYcodone 5 MG/5 ML ORAL.SOL UDC ONE (13:30)
[2016-10-06] MEDS ORDERED: ONDANSETRON 2MG/ML, 2ML IVPush PRN (13:30)
[2016-10-06] MEDS ORDERED: PROMETHAZINE 25 MG/ML, 1ML IV PRN (13:30)
[2016-10-06] MEDS ORDERED: FENTANYL PF 100 MCG/2ML IV PRN (13:30)
[2016-10-06] MEDS ORDERED: MEPERIDINE/PF 25MG/0.5ML IVPush PRN (13:30)
[2016-10-06] MEDS ORDERED: FENTANYL PF 100 MCG/2ML ONE (13:30)
[2016-10-06] MEDS ORDERED: ALBUTEROL/IPRATROPIUM 2.5MG/0.5MG, 3 ML NPPB PRN (13:30)
[2016-10-06] MEDS ORDERED: HYDROmorphone 1 MG/ML, 1ML IV PRN (13:30)
[2016-10-06] MEDS ORDERED: OXYcodone 5 MG/5 ML ORAL.SOL UDC PO PRN (13:30)
[2016-10-06] MEDS ORDERED: MIDAZOLAM 1 MG/ML, 2ML IV PRN (13:30)
[2016-10-06] MEDS ORDERED: LABETALOL 5MG/ML, 20ML IV PRN (13:30)
[2016-10-06 14:36] VITALS: BP 117/77
[2016-10-06] MEDS ORDERED: PROPOFOL 10 MG/ML, 20ML ONE (16:30)
[2016-10-06] MEDS: OCTREOTIDE 500 MCG in SODIUM CHLORIDE 0.9% 249 ML IV SCH (17:06)
[2016-10-06 19:33] VITALS: BP 97/76
[2016-10-06] MEDS: CHLORDIAZEPOXIDE 25 MG CAPSULE PO SCH (21:11)
[2016-10-06] MEDS: THIAMINE 100 MG, MVI ADULT 10 ML, FOLIC ACID 1 MG in D5%-0.9% NACL 1,000 ML IV SCH (21:14)
[2016-10-07 02:12] VITALS: BP 123/76
[2016-10-07] MEDS: OCTREOTIDE 500 MCG in SODIUM CHLORIDE 0.9% 249 ML IV SCH ×2 (02:58→13:00)
[2016-10-07 05:33] LABS: ASPARTATE AMINO TRANSFERASE 68 U/L (15-37); BLOOD UREA NITROGEN 2 mg/dL (7-18)
[2016-10-07 07:53] VITALS: BP 102/53
[2016-10-07] MEDS: metroNIDAZOLE 500 MG TABLET PO SCH (08:25)
[2016-10-07] MEDS: RIFAXIMIN 550 MG TABLET PO SCH (08:25)
[2016-10-07] MEDS: CHLORDIAZEPOXIDE 25 MG CAPSULE PO SCH (08:25)
[2016-10-07] MEDS: PANTOPRAZOLE 40 MG IV IVPush SCH (08:25)
[2016-10-07] MEDS: SPIRONOLACTONE 25 MG TABLET PO SCH (08:26)
[2016-10-07] MEDS: FUROSEMIDE 20 MG TABLET PO SCH (08:26)
[2016-10-07] MEDS: LACTULOSE 20 GM/30 ML UDC PO SCH (09:00)
[2016-10-07 12:51] VITALS: BP 104/62
[2016-10-07] MEDS ORDERED: OMEP-110 PO (14:37)
== END 2016-10-07 17:05 | disposition home or self-care (01) | DRG 377 ==
LOC: ED 18:20 → EDIP 18:30 → 3NE 19:53
PROVIDERS: ADMIT Internal Medicine; ATTEND Internal Medicine
PROC: 0W9G3ZZ Drainage of Peritoneal Cavity, Percutaneous Approach (ICD-10-PCS; 2016-10-04)
PROC: 30233N1 Transfusion of Nonautologous Red Blood Cells into Peripheral Vein, Percutaneous Approach (ICD-10-PCS; 2016-10-04)
PROC: 0DJ08ZZ Inspection of Upper Intestinal Tract, Via Natural or Artificial Opening Endoscopic (ICD-10-PCS; principal; 2016-10-06 13:00)
DX: K92.1 Melena (principal); E43 Unspecified severe protein-calorie malnutrition; A04.7 Enterocolitis due to Clostridium difficile; D62 Acute posthemorrhagic anemia; D68.4 Acquired coagulation factor deficiency; K76.6 Portal hypertension; F10.229 Alcohol dependence with intoxication, unspecified; K70.31 Alcoholic cirrhosis of liver with ascites; F43.10 Post-traumatic stress disorder, unspecified; Z83.3 Family history of diabetes mellitus; F17.210 Nicotine dependence, cigarettes, uncomplicated; E87.6 Hypokalemia; F32.9 Major depressive disorder, single episode, unspecified; J45.20 Mild intermittent asthma, uncomplicated; K72.90 Hepatic failure, unspecified without coma; F12.10 Cannabis abuse, uncomplicated; D69.6 Thrombocytopenia, unspecified; K31.89 Other diseases of stomach and duodenum; G89.29 Other chronic pain; Z90.49 Acquired absence of other specified parts of digestive tract; Z82.49 Family history of ischemic heart disease and other diseases of the circulatory system; Z98.51 Tubal ligation status; Z68.27 Body mass index [BMI] 27.0-27.9, adult
CPT/HCPCS: 36415; 49083; 71010; 74177; 80053; 80307; 81001; 82042; 82140; 83690; 83735; 84100; 84439; 84443; 84703; 85014; 85018; 85025; 85610; 86850; 86900; 86923; 87070; 87086; 87205; 89051; 93005; 99152; 99153; 99285; J2354; J2405; J2704; J3010; J3411; J3430; J3475; J3480; J3490; J7042; Q9967; C9113; J2060; J7040; J7050; P9016

== ENCOUNTER 2016-10-17 23:05 | Emergency (ER) | payer MEDICAID ==
[~2016-10-17] VITALS: Ht 170.2 cm; Wt 78.8 kg
[2016-10-18] MEDS ORDERED: SODIUM CHLORIDE 0.9% 1,000ML IVBOLUS ONE
[2016-10-18] MEDS ORDERED: ONDANSETRON 2MG/ML, 2ML IVPush ONE
[2016-10-18 00:04] LABS: ASPARTATE AMINO TRANSFERASE 62 U/L (15-37); BLOOD UREA NITROGEN 13 mg/dL (7-18)
[2016-10-18] MEDS ORDERED: FAMOTIDINE 20 MG/2 ML IVPush ONE (00:30)
[2016-10-18] MEDS ORDERED: PANTOPRAZOLE 40 MG IV IVPush ONE (00:30)
[2016-10-18] MEDS ORDERED: FAMOTIDINE 20 MG/2 ML ONE (00:36)
[2016-10-18] MEDS ORDERED: ONDANSETRON 2MG/ML, 2ML ONE (00:36)
[2016-10-18] MEDS ORDERED: PANTOPRAZOLE 40 MG IV ONE (00:36)
[2016-10-18 00:49] VITALS: BP 114/65
[2016-10-18] MEDS ORDERED: PANTOPRAZOLE 80 MG in SODIUM CHLORIDE 0.9% 100 ML IV SCH (01:16)
[2016-10-18 02:49] LABS: HCG UR OBC PASS
== END 2016-10-18 04:02 | disposition left against medical advice (07) ==
LOC: ED 23:41 → EDIP 10-18 02:45 → UNDOADMIN 10-18 02:45
DX: K92.0 Hematemesis (principal); F10.10 Alcohol abuse, uncomplicated; K70.30 Alcoholic cirrhosis of liver without ascites; J45.909 Unspecified asthma, uncomplicated
CPT/HCPCS: 36415; 80053; 80307; 81001; 81025; 82140; 83690; 85025; 86850; 86900; 93005; 96361; 96374; 96375; 99285; C9113; J2405; J7030; S0028

== ENCOUNTER 2016-11-02 09:57 | Emergency (ER) | payer MEDICAID ==
[~2016-11-02] VITALS: Ht 170.2 cm; Wt 81.0 kg
[2016-11-02] MEDS ORDERED: FAMOTIDINE 20 MG/2 ML IVP ONE (11:00)
[2016-11-02] MEDS ORDERED: SODIUM CHLORIDE FLUSH 10ML SYR IVF ONE (11:00)
[2016-11-02] MEDS ORDERED: THIAMINE 100MG TABLET PO ONE (11:00)
[2016-11-02] MEDS ORDERED: ONDANSETRON 2MG/ML, 2ML IVPush ONE (11:00)
[2016-11-02] MEDS ORDERED: SODIUM CHLORIDE 0.9% 1,000ML IVBOLUS ONE (11:00)
[2016-11-02] MEDS ORDERED: THIAMINE 100MG TABLET ONE (11:06)
[2016-11-02] MEDS ORDERED: ONDANSETRON 2MG/ML, 2ML ONE (11:06)
[2016-11-02] MEDS ORDERED: FAMOTIDINE 20 MG/2 ML ONE (11:07)
[2016-11-02 11:10] LABS: ASPARTATE AMINO TRANSFERASE 94 U/L (15-37); BLOOD UREA NITROGEN 1 mg/dL (7-18)
[2016-11-02 13:01] LABS: DIFF TOTAL CELLS COUNTED 100 CELL DIFF
[2016-11-02 13:03] LABS: ANISOCYTOSIS 1+; VERIFY COUNTS? YES
[2016-11-02 13:04] LABS: MICROCYTOSIS 2+; POIKILOCYTOSIS 1+
[2016-11-02] MEDS ORDERED: POTASSIUM CHLORIDE 20 MEQ TAB.ER.PRT PO ONE (13:30)
[2016-11-02] MEDS ORDERED: POTASSIUM CHLORIDE 40 MEQ in SODIUM CHLORIDE 0.9% 500 ML IV ONE (13:30)
[2016-11-02] MEDS ORDERED: POTASSIUM CHLORIDE 20 MEQ TAB.ER.PRT ONE (13:51)
[2016-11-02 15:13] LABS: BLOOD UREA NITROGEN 1 mg/dL (7-18)
[2016-11-02] MEDS ORDERED: CEFTRIAXONE PMX 1GM/50ML 50 ML ONE (15:30)
[2016-11-02] MEDS ORDERED: CEFTRIAXONE PMX 1GM/50ML 50 ML IV ONE (15:30)
[2016-11-02 17:08] VITALS: BP 125/71
== END 2016-11-02 17:10 | disposition home or self-care (01) ==
LOC: ED 13:01
DX: F10.239 Alcohol dependence with withdrawal, unspecified (principal); E87.6 Hypokalemia; N30.91 Cystitis, unspecified with hematuria; D53.1 Other megaloblastic anemias, not elsewhere classified; J45.909 Unspecified asthma, uncomplicated; Z90.49 Acquired absence of other specified parts of digestive tract; Z98.890 Other specified postprocedural states
CPT/HCPCS: 36415; 80048; 80053; 81001; 82040; 83690; 84703; 85025; 85610; 85730; 87077; 87086; 96365; 96366; 96368; 99285; J0696; J2405; J3480; J7030; J7040; 87186; S0028

== ENCOUNTER 2016-11-09 15:32 | Inpatient (IN) | payer MEDICAID ==
[~2016-11-09] VITALS: Ht 170.2 cm; Wt 86.0 kg
[2016-11-09] MEDS ORDERED: ONDANSETRON 2MG/ML, 2ML IVPush ONE (16:00)
[2016-11-09] MEDS ORDERED: SODIUM CHLORIDE FLUSH 10ML SYR IVF ONE (16:00)
[2016-11-09] MEDS ORDERED: FAMOTIDINE 20 MG/2 ML IVP ONE (16:00)
[2016-11-09] MEDS ORDERED: THIAMINE 100MG TABLET PO ONE (16:00)
[2016-11-09] MEDS ORDERED: SODIUM CHLORIDE 0.9% 1,000ML IVBOLUS ONE (16:00)
[2016-11-09 16:35] LABS: ASPARTATE AMINO TRANSFERASE 121 U/L (15-37); BLOOD UREA NITROGEN 11 mg/dL (7-18)
[2016-11-09] MEDS ORDERED: FAMOTIDINE 20 MG/2 ML ONE (16:35)
[2016-11-09] MEDS ORDERED: THIAMINE 100MG TABLET ONE (16:35)
[2016-11-09] MEDS ORDERED: ONDANSETRON 2MG/ML, 2ML ONE (16:35)
[2016-11-09] MEDS ORDERED: ACETAMINOPHEN 325 MG TABLET PO ONE (17:00)
[2016-11-09] MEDS ORDERED: POTASSIUM CHLORIDE 20 MEQ TAB.ER.PRT PO ONE (17:00)
[2016-11-09] MEDS ORDERED: POTASSIUM CHLORIDE 40 MEQ in SODIUM CHLORIDE 0.9% 500 ML IV ONE (17:00)
[2016-11-09] MEDS ORDERED: POTASSIUM CHLORIDE 20 MEQ TAB.ER.PRT ONE (17:12)
[2016-11-09] MEDS ORDERED: ACETAMINOPHEN 325 MG TABLET ONE (17:12)
[2016-11-09] MEDS ORDERED: MORPHINE SULFATE 4 MG/ML, 1ML ONE (17:19)
[2016-11-09] MEDS ORDERED: LORazepam 1MG TABLET PO PRN ×3 (18:00)
[2016-11-09] MEDS ORDERED: LORazepam 2 MG/ML, 1ML IV PRN ×4 (18:00)
[2016-11-09] MEDS ORDERED: LORazepam 0.5MG TABLET PO PRN (18:00)
[2016-11-09] MEDS ORDERED: MORPHINE SULFATE 4 MG/ML, 1ML IVPush ONE (18:00)
[2016-11-09] MEDS ORDERED: PANTOPRAZOLE 80 MG in SODIUM CHLORIDE 0.9% 50 ML IV ONE (18:00)
[2016-11-09] MEDS ORDERED: ONDANSETRON 2MG/ML, 2ML IVPush PRN (18:00)
[2016-11-09] MEDS ORDERED: PANTOPRAZOLE 80 MG in SODIUM CHLORIDE 0.9% 100 ML IV SCH (19:00)
[2016-11-09 19:33] LABS: DAU SCREEN DISCLAIMER
[2016-11-09 19:35] VITALS: BP 117/72
[2016-11-09 20:33] VITALS: BP 110/59
[2016-11-09 20:48] VITALS: BP 111/68
[2016-11-09 22:55] VITALS: BP 112/61
[2016-11-09] MEDS ORDERED: OCTREOTIDE 50 MCG/ML, 1ML (0.05MG/ML) IVPush ONE (23:00)
[2016-11-09 23:14] VITALS: BP 118/63
[2016-11-09] MEDS: CEFTRIAXONE PMX 1GM/50ML 50 ML IV SCH (23:23)
[2016-11-09 23:30] VITALS: BP 121/61
[2016-11-09] MEDS: PANTOPRAZOLE 80 MG in SODIUM CHLORIDE 0.9% 100 ML IV SCH (23:51)
[2016-11-10] MEDS: OCTREOTIDE 500 MCG in SODIUM CHLORIDE 0.9% 249 ML IV SCH ×2 (00:01→19:25)
[2016-11-10] MEDS ORDERED: OCTREOTIDE 100MCG/ML, 1ML (0.1MG/ML) IV ONE (00:30)
[2016-11-10 01:05] VITALS: BP 105/56
[2016-11-10] MEDS: POTASSIUM CHLORIDE 20 MEQ, MAGNESIUM SULFATE 2 GM, THIAMINE 100 MG, MVI ADULT 10 ML, FO... IV SCH ×2 (01:35→05:16)
[2016-11-10] MEDS: morphine SULFATE 10 MG/ML, 1ML IVPush PRN ×3 (02:53→14:30)
[2016-11-10 03:09] LABS: ASPARTATE AMINO TRANSFERASE 138 U/L (15-37); BLOOD UREA NITROGEN 8 mg/dL (7-18)
[2016-11-10 03:56] LABS: DIFF TOTAL CELLS COUNTED 100 CELL DIFF
[2016-11-10 04:00] LABS: VERIFY COUNTS? YES
[2016-11-10 04:01] LABS: ANISOCYTOSIS 1+; POIKILOCYTOSIS 1+
[2016-11-10 07:04] VITALS: BP 100/59
[2016-11-10] MEDS: PANTOPRAZOLE 80 MG in SODIUM CHLORIDE 0.9% 100 ML IV SCH (09:25)
[2016-11-10] MEDS: NS + 40MEQ KCL 1,000 ML IV SCH (12:36)
[2016-11-10] MEDS ORDERED: FENTANYL PF 100 MCG/2ML ONE (13:24)
[2016-11-10] MEDS ORDERED: GLYCOPYRROLATE 0.2MG/1ML ONE (13:38)
[2016-11-10] MEDS ORDERED: NEOSTIGMINE 1 MG/ML, 10ML ONE (13:38)
[2016-11-10] MEDS ORDERED: PROPOFOL 10 MG/ML, 20ML ONE (13:38)
[2016-11-10] MEDS ORDERED: ROCURONIUM 10 MG/ML ONE (13:38)
[2016-11-10] MEDS ORDERED: SUCCINYLCHOLINE 20 MG/ML, 10ML ONE (13:38)
[2016-11-10] MEDS ORDERED: MORPHINE SULFATE 4 MG/ML, 1ML ONE (14:27)
[2016-11-10] MEDS ORDERED: LIDOCAINE 1%, 20ML ONE (14:34)
[2016-11-10 15:00] VITALS: BP 117/77
[2016-11-10] MEDS: MORPHINE SULFATE 4 MG/ML, 1ML IVPush PRN ×2 (18:42→22:41)
[2016-11-10 19:45] VITALS: BP 105/65
[2016-11-10] MEDS: MOVIPREP POWDER 1 PREP KIT PO SCH (22:20)
[2016-11-10] MEDS: CEFTRIAXONE PMX 1GM/50ML 50 ML IV SCH (22:24)
[2016-11-11 00:19] VITALS: BP 114/74
[2016-11-11] MEDS: NS + 40MEQ KCL 1,000 ML IV SCH ×2 (00:50→15:27)
[2016-11-11] MEDS: PANTOPRAZOLE 80 MG in SODIUM CHLORIDE 0.9% 100 ML IV SCH ×4 (01:03→23:01)
[2016-11-11] MEDS: MORPHINE SULFATE 4 MG/ML, 1ML IVPush PRN ×5 (02:52→21:55)
[2016-11-11] MEDS: POTASSIUM CHLORIDE 20 MEQ, MAGNESIUM SULFATE 2 GM, THIAMINE 100 MG, MVI ADULT 10 ML, FO... IV SCH ×2 (02:56→20:00)
[2016-11-11] MEDS: MOVIPREP POWDER 1 PREP KIT PO SCH ×3 (07:19→21:41)
[2016-11-11 07:46] VITALS: BP 119/79
[2016-11-11] MEDS ORDERED: LIDOCAINE 1%, 20ML ONE (08:23)
[2016-11-11] MEDS: OCTREOTIDE 500 MCG in SODIUM CHLORIDE 0.9% 249 ML IV SCH (11:40)
[2016-11-11 11:55] LABS: BLOOD UREA NITROGEN 5 mg/dL (7-18)
[2016-11-11 12:27] LABS: DIFF TOTAL CELLS COUNTED 100 CELL DIFF
[2016-11-11 12:31] LABS: VERIFY COUNTS? YES
[2016-11-11 12:37] LABS: ANISOCYTOSIS 1+; POLYCHROMASIA 1+
[2016-11-11 13:28] VITALS: BP 107/69
[2016-11-11] MEDS ORDERED: MOVIPREP POWDER 1 PREP KIT PO ONE (14:30)
[2016-11-11 19:30] VITALS: BP 120/74
[2016-11-11] MEDS ORDERED: POTASSIUM CHLORIDE 20 MEQ, MAGNESIUM SULFATE 2 GM, THIAMINE 100 MG, MVI ADULT 10 ML, FO... IV SCH (22:00)
[2016-11-11] MEDS: CEFTRIAXONE PMX 1GM/50ML 50 ML IV SCH (23:01)
[2016-11-12 01:28] VITALS: BP 111/70
[2016-11-12] MEDS: MORPHINE SULFATE 4 MG/ML, 1ML IVPush PRN ×5 (03:06→22:23)
[2016-11-12] MEDS: MOVIPREP POWDER 1 PREP KIT PO SCH ×2 (05:59→09:00)
[2016-11-12 06:16] LABS: BLOOD UREA NITROGEN 3 mg/dL (7-18)
[2016-11-12 06:30] LABS: DIFF TOTAL CELLS COUNTED 100 CELL DIFF
[2016-11-12 06:34] LABS: VERIFY COUNTS? YES
[2016-11-12 06:42] LABS: ANISOCYTOSIS 1+; HYPOCHROMIA 1+
[2016-11-12 06:43] LABS: ACANTHOCYTES 1+; SCHISTOCYTES 1+
[2016-11-12 06:47] VITALS: BP 113/69
[2016-11-12] MEDS: PANTOPRAZOLE 80 MG in SODIUM CHLORIDE 0.9% 100 ML IV SCH ×3 (09:40→23:07)
[2016-11-12] MEDS: OCTREOTIDE 500 MCG in SODIUM CHLORIDE 0.9% 249 ML IV SCH (11:22)
[2016-11-12] MEDS: NS + 40MEQ KCL 1,000 ML IV SCH ×2 (12:00→21:18)
[2016-11-12] MEDS ORDERED: PROPOFOL 10 MG/ML, 20ML ONE (14:12)
[2016-11-12] MEDS ORDERED: MIDAZOLAM 1 MG/ML, 2ML ONE (14:22)
[2016-11-12] MEDS ORDERED: FENTANYL PF 250 MCG/5ML ONE (14:23)
[2016-11-12 14:30] VITALS: BP 114/77
[2016-11-12] MEDS ORDERED: FENTANYL PF 100 MCG/2ML ONE (14:55)
[2016-11-12] MEDS ORDERED: MIDAZOLAM 1 MG/ML, 2ML IV PRN (15:00)
[2016-11-12] MEDS ORDERED: OXYcodone 5 MG/5 ML ORAL.SOL UDC PO PRN (15:00)
[2016-11-12] MEDS ORDERED: MEPERIDINE/PF 25MG/0.5ML IVPush PRN (15:00)
[2016-11-12] MEDS ORDERED: PROMETHAZINE 25 MG/ML, 1ML IV PRN (15:00)
[2016-11-12] MEDS ORDERED: LABETALOL 5MG/ML, 20ML IV PRN (15:00)
[2016-11-12] MEDS ORDERED: hydrALAzine 20 MG/ML, 1ML IV PRN (15:00)
[2016-11-12] MEDS ORDERED: ONDANSETRON 2MG/ML, 2ML IVPush PRN (15:00)
[2016-11-12] MEDS ORDERED: FENTANYL PF 100 MCG/2ML IV PRN (15:00)
[2016-11-12] MEDS ORDERED: HYDROmorphone 1 MG/ML, 1ML IV PRN (15:00)
[2016-11-12 20:02] VITALS: BP 105/62
[2016-11-12] MEDS: POTASSIUM CHLORIDE 20 MEQ, MAGNESIUM SULFATE 2 GM, THIAMINE 100 MG, MVI ADULT 10 ML, FO... IV SCH (22:23)
[2016-11-12] MEDS ORDERED: CEFTRIAXONE 1,000 MG in SODIUM CHLORIDE 0.9% 100 ML IV ONE (23:00)
[2016-11-13 02:00] VITALS: BP 114/69
[2016-11-13 05:35] LABS: ASPARTATE AMINO TRANSFERASE 72 U/L (15-37); BLOOD UREA NITROGEN 4 mg/dL (7-18)
[2016-11-13 06:21] LABS: DIFF TOTAL CELLS COUNTED 100 CELL DIFF
[2016-11-13 07:46] LABS: ACANTHOCYTES 1+; ANISOCYTOSIS 1+; HYPOCHROMIA 1+; SCHISTOCYTES 1+; VERIFY COUNTS? YES
[2016-11-13] MEDS: MORPHINE SULFATE 4 MG/ML, 1ML IVPush PRN ×4 (08:29→20:26)
[2016-11-13] MEDS ORDERED: CALCIUM GLUCONATE 4.6 MEQ in SODIUM CHLORIDE 0.9% 50 ML IV ONE ×2 (08:30→09:00)
[2016-11-13] MEDS ORDERED: CALCIUM GLUCONATE 4.6 MEQ/10 ML IVPush ONE (08:30)
[2016-11-13 08:33] VITALS: BP 120/74
[2016-11-13] MEDS: PANTOPRAZOLE 80 MG in SODIUM CHLORIDE 0.9% 100 ML IV SCH (11:10)
[2016-11-13 11:56] VITALS: BP 117/71
[2016-11-13 12:15] VITALS: BP 108/68
[2016-11-13] MEDS ORDERED: OCTREOTIDE 500 MCG in SODIUM CHLORIDE 0.9% 249 ML IV SCH (14:30)
[2016-11-13 14:44] VITALS: BP 110/78
[2016-11-13] MEDS: OCTREOTIDE 500 MCG in SODIUM CHLORIDE 0.9% 249 ML IV SCH (16:28)
[2016-11-13] MEDS: CEFTRIAXONE PMX 1GM/50ML 50 ML IV SCH (20:26)
[2016-11-13 20:38] VITALS: BP 102/63
[2016-11-13] MEDS: POTASSIUM CHLORIDE 20 MEQ, MAGNESIUM SULFATE 2 GM, THIAMINE 100 MG, MVI ADULT 10 ML, FO... IV SCH (22:58)
[2016-11-14] MEDS: PANTOPRAZOLE 80 MG in SODIUM CHLORIDE 0.9% 100 ML IV SCH ×3 (00:38→18:16)
[2016-11-14] MEDS: MORPHINE SULFATE 4 MG/ML, 1ML IVPush PRN ×2 (00:39→08:34)
[2016-11-14 02:32] VITALS: BP 105/61
[2016-11-14 04:38] LABS: BLOOD UREA NITROGEN 5 mg/dL (7-18)
[2016-11-14 07:05] VITALS: BP 109/65
[2016-11-14 09:19] LABS: DIFF TOTAL CELLS COUNTED 100 CELL DIFF
[2016-11-14 09:26] LABS: VERIFY COUNTS? YES
[2016-11-14 09:27] LABS: ANISOCYTOSIS 1+; HYPOCHROMIA 1+
[2016-11-14 09:28] LABS: SCHISTOCYTES 1+
[2016-11-14] MEDS: NS + 40MEQ KCL 1,000 ML IV SCH (10:03)
[2016-11-14] MEDS: OCTREOTIDE 500 MCG in SODIUM CHLORIDE 0.9% 249 ML IV SCH (10:55)
[2016-11-14 13:25] VITALS: BP 107/66
[2016-11-14] MEDS: OXYcodone IR 5MG TABLET PO PRN ×2 (16:10→20:06)
[2016-11-14] MEDS: ONDANSETRON ODT 4 MG PO PRN (16:13)
[2016-11-14 18:27] VITALS: BP 115/71
[2016-11-14] MEDS: CEFTRIAXONE PMX 1GM/50ML 50 ML IV SCH (20:32)
[2016-11-14] MEDS: POTASSIUM CHLORIDE 20 MEQ, MAGNESIUM SULFATE 2 GM, THIAMINE 100 MG, MVI ADULT 10 ML, FO... IV SCH (23:39)
[2016-11-15 02:54] VITALS: BP 108/68
[2016-11-15] MEDS: OXYcodone IR 5MG TABLET PO PRN ×4 (04:10→20:55)
[2016-11-15] MEDS: PANTOPRAZOLE 80 MG in SODIUM CHLORIDE 0.9% 100 ML IV SCH (04:10)
[2016-11-15 06:48] VITALS: BP 100/59
[2016-11-15] MEDS: NS + 40MEQ KCL 1,000 ML IV SCH (09:00)
[2016-11-15] MEDS: SPIRONOLACTONE 100 MG TABLET PO SCH (10:51)
[2016-11-15] MEDS: FUROSEMIDE 40 MG TABLET PO SCH (10:51)
[2016-11-15 11:06] LABS: TOTAL IRON BINDING CAPACITY 233 mcg/dL (250-450)
[2016-11-15 14:36] VITALS: BP 122/77
[2016-11-15 20:00] VITALS: BP 106/64
[2016-11-15] MEDS: ONDANSETRON ODT 4 MG PO PRN (20:57)
[2016-11-16 02:00] VITALS: BP 114/71
[2016-11-16] MEDS: OXYcodone IR 5MG TABLET PO PRN ×2 (04:26→08:30)
[2016-11-16] MEDS: ONDANSETRON ODT 4 MG PO PRN (05:33)
[2016-11-16 05:41] LABS: BLOOD UREA NITROGEN 6 mg/dL (7-18)
[2016-11-16 06:59] VITALS: BP 113/70
[2016-11-16] MEDS: SPIRONOLACTONE 100 MG TABLET PO SCH (08:29)
[2016-11-16] MEDS: FUROSEMIDE 40 MG TABLET PO SCH (08:30)
[2016-11-16] MEDS ORDERED: PROP10TA PO (09:08)
[2016-11-16] MEDS ORDERED: MAGN400T26 PO (09:08)
[2016-11-16] MEDS ORDERED: ONDA4TAB13 PO (09:08)
[2016-11-16] MEDS ORDERED: FURO-93 PO (09:08)
[2016-11-16] MEDS ORDERED: SPIR25TA PO (09:08)
== END 2016-11-16 12:42 | disposition home or self-care (01) | DRG 377 ==
LOC: ED 17:14 → EDIP 17:15 → ED 17:19 → 4WST 18:02 → DCLOUNGE 11-16 12:42
PROVIDERS: ADMIT Internal Medicine; ATTEND Internal Medicine
PROC: 30233N1 Transfusion of Nonautologous Red Blood Cells into Peripheral Vein, Percutaneous Approach (ICD-10-PCS; 2016-11-09)
PROC: 0DJ08ZZ Inspection of Upper Intestinal Tract, Via Natural or Artificial Opening Endoscopic (ICD-10-PCS; principal; 2016-11-10 13:30)
PROC: 0W9G30Z Drainage of Peritoneal Cavity with Drainage Device, Percutaneous Approach (ICD-10-PCS; 2016-11-11)
PROC: 0DBE8ZX Excision of Large Intestine, Via Natural or Artificial Opening Endoscopic, Diagnostic (ICD-10-PCS; 2016-11-12)
DX: K92.2 Gastrointestinal hemorrhage, unspecified (principal); K85.90 Acute pancreatitis without necrosis or infection, unspecified; E43 Unspecified severe protein-calorie malnutrition; K76.6 Portal hypertension; D68.4 Acquired coagulation factor deficiency; E87.1 Hypo-osmolality and hyponatremia; K63.3 Ulcer of intestine; D62 Acute posthemorrhagic anemia; E87.6 Hypokalemia; F10.129 Alcohol abuse with intoxication, unspecified; K70.10 Alcoholic hepatitis without ascites; D69.6 Thrombocytopenia, unspecified; K22.70 Barrett's esophagus without dysplasia; K31.89 Other diseases of stomach and duodenum; F32.9 Major depressive disorder, single episode, unspecified; F43.10 Post-traumatic stress disorder, unspecified; F41.9 Anxiety disorder, unspecified; K57.30 Diverticulosis of large intestine without perforation or abscess without bleeding; K64.1 Second degree hemorrhoids; J45.20 Mild intermittent asthma, uncomplicated; K72.90 Hepatic failure, unspecified without coma; K70.11 Alcoholic hepatitis with ascites; K70.31 Alcoholic cirrhosis of liver with ascites; E83.51 Hypocalcemia; F17.210 Nicotine dependence, cigarettes, uncomplicated; F12.10 Cannabis abuse, uncomplicated; Z91.19 Patient's noncompliance with other medical treatment and regimen; Z90.49 Acquired absence of other specified parts of digestive tract; Z98.51 Tubal ligation status; Z83.3 Family history of diabetes mellitus; Z91.14 Patient's other noncompliance with medication regimen; Z82.49 Family history of ischemic heart disease and other diseases of the circulatory system; Z68.29 Body mass index [BMI] 29.0-29.9, adult
CPT/HCPCS: 36415; 49083; 74000; 74176; 78278; 80048; 80053; 80307; 81001; 82042; 82140; 83540; 83550; 83605; 83690; 83735; 84100; 84157; 84703; 85014; 85018; 85025; 85610; 86850; 86900; 86923; 87070; 87205; 88305; 89051; 96361; 96374; 96375; J0610; J0696; J2250; J2354; J2405; J2704; J2710; J3010; J3411; J3475; J3480; J3490; J7042; Q0162; A9560; C9113; C9898; J0330; J2270; J7030; J7040; J7050; P9016; S0028

== ENCOUNTER 2016-11-25 09:42 | Emergency (ER) | payer MEDICAID ==
[~2016-11-25] VITALS: Ht 167.6 cm; Wt 80.0 kg
[~2016-11-25 09:42] MED LIST changes: +MAGN400T26 PO; +ONDA4TAB13 PO; +PROP10TA PO
[2016-11-25] MEDS ORDERED: LIDOCAINE 1%, 20ML ONE (10:23)
[2016-11-25] MEDS ORDERED: ONDANSETRON 2MG/ML, 2ML IVPush ONE (10:30)
[2016-11-25] MEDS ORDERED: MORPHINE SULFATE 4 MG/ML, 1ML IVPush PRN (10:30)
[2016-11-25] MEDS ORDERED: SODIUM CHLORIDE FLUSH 10ML SYR IVF ONE (10:30)
[2016-11-25 11:06] LABS: HEMATOCRIT 26.7 % (34.6-47.8); WHITE BLOOD COUNT 8.9 x10^3/uL (3.4-10)
[2016-11-25 11:09] LABS: ASPARTATE AMINO TRANSFERASE 78 U/L (15-37); BLOOD UREA NITROGEN 5 mg/dL (7-18)
[2016-11-25 11:18] LABS: DIFF TOTAL CELLS COUNTED 100 CELL DIFF
[2016-11-25 11:20] LABS: VERIFY COUNTS? YES
[2016-11-25 11:21] LABS: ANISOCYTOSIS 1+; HYPOCHROMIA 1+
[2016-11-25 14:01] VITALS: BP 118/64
[2016-11-25] MEDS ORDERED: ONDANSETRON ODT 8 MG ONE (14:10)
[2016-11-25] MEDS ORDERED: HYDROcodone/APAP 5/325 TABLET ONE (14:10)
[2016-11-25] MEDS ORDERED: ONDANSETRON ODT 8 MG PO ONE (14:30)
[2016-11-25] MEDS ORDERED: HYDROcodone/APAP 5/325 TABLET PO ONE (14:30)
[2016-11-25 15:34] LABS: CELLS COUNTED 21; DILUTION 1; WBC SQUARES COUNTED 9
== END 2016-11-25 15:36 | disposition left against medical advice (07) ==
LOC: ED 12:31
DX: K70.31 Alcoholic cirrhosis of liver with ascites (principal)
CPT/HCPCS: 36415; 49083; 74176; 80053; 81001; 85025; 85610; 85730; 87070; 87205; 89051; 99285; J3490; Q0162